=== PATIENT | female | born 2005 | race African-American/Black ===

== ENCOUNTER 2025-06-02 18:19 | Emergency (ER) | payer MEDICAID ==
[~2025-06-02] VITALS: Ht 162.6 cm; Wt 49.0 kg
[2025-06-02 18:22] VITALS: O2SAT 100
[2025-06-02 18:42] VITALS: BP 104/60; PULSE 75; RESP 16; TEMP 36.7; O2SAT 100
[2025-06-02] MEDS ORDERED: SODIUM CHLORIDE 0.9% 1,000 ML IV ONE (18:45)
== END 2025-06-02 19:33 | disposition home or self-care (01) ==
LOC: ER 18:19
DX: F12.929 Cannabis use, unspecified with intoxication, unspecified (principal); F31.9 Bipolar disorder, unspecified; F60.3 Borderline personality disorder; Z55.6 Problems related to health literacy
CPT/HCPCS: 99283; J7030